=== PATIENT | male | born 1980 | race Hispanic/Latino ===

== ENCOUNTER 2023-08-10 10:31 | Outpatient (CLI) | payer BC | END 2023-08-10 10:32 | disposition home or self-care (01) | LOC: CSHLAB 10:31 | PROVIDERS: ATTEND Surgery | DX: Z01.818 Encounter for other preprocedural examination (principal); K42.9 Umbilical hernia without obstruction or gangrene | CPT/HCPCS: 93005; 93010 ==

== ENCOUNTER 2023-08-13 06:04 | Day surgery (SDC) | payer BC ==
[2023-08-10 11:36] VITALS: BMI 32.3
[2023-08-13] MEDS ORDERED: EPINEPHrine 1 MG/ML VIAL ONE (07:19)
[2023-08-13] MEDS ORDERED: Bupivacaine PF 0.5% 30 ML VIAL ONE (07:20)
[2023-08-13] MEDS ORDERED: Midazolam HCl 2 mg/2 ml Vial ONE (08:07)
[2023-08-13] MEDS ORDERED: Rocuronium Bromide 10 MG/ML (10ML VIAL) ONE (08:07)
[2023-08-13] MEDS ORDERED: Fentanyl 250 MCG/5 ML VIAL ONE (08:07)
[2023-08-13] MEDS ORDERED: PROPOFOL 20 ML ONE (08:07)
[2023-08-13] MEDS ORDERED: Lidocaine 2% PF 5 ML VIAL ONE (08:07)
[2023-08-13] MEDS ORDERED: CEFAZOLIN 2 GM VIAL ONE (08:13)
[2023-08-13] MEDS ORDERED: HYDROmorphone 0.5 MG/0.5 ML SYRINGE ONE (08:14)
[2023-08-13] MEDS ORDERED: SUGAMMADEX SODIUM 200 MG/2 ML VIAL ONE (08:14)
[2023-08-13] MEDS ORDERED: Dexamethasone 4 mg/ml Vial ONE (08:50)
[2023-08-13] MEDS ORDERED: Ondansetron PF 4 MG/2 ML Vial ONE (08:50)
[2023-08-13] MEDS ORDERED: fentaNYL 50 mcg/mL 1 mL Vial ONE ×2 (09:02→09:49)
[2023-08-13] MEDS ORDERED: HYDROcodone/Acetaminophen 5/325 mg Tablet PO PRN ×2 (09:35)
[2023-08-13] MEDS ORDERED: Acetaminophen 325 MG TAB PO PRN (09:35)
[2023-08-13] MEDS ORDERED: Sevoflurane 250 ML INH ANEST BOTTLE ONE (09:46)
[2023-08-13] MEDS ORDERED: Ketorolac Tromethamine 30 MG (1 mL) VIAL ONE (09:49)
[2023-08-13] MEDS ORDERED: HYDROcodone/Acetaminophen 5/325 mg Tablet ONE (10:29)
== END 2023-08-13 11:10 | disposition home or self-care (01) ==
LOC: CSHSDC 06:04
PROVIDERS: ATTEND Surgery
PROC: 0WUF4JZ Supplement Abdominal Wall with Synthetic Substitute, Percutaneous Endoscopic Approach (ICD-10-PCS; principal; 2023-08-13)
DX: K42.0 Umbilical hernia with obstruction, without gangrene (principal); E66.9 Obesity, unspecified; Z68.32 Body mass index [BMI] 32.0-32.9, adult; Z87.891 Personal history of nicotine dependence
CPT/HCPCS: A6258; J0171; J0665; J1100; J1170; J1885; J2001; J2250; J2405; J2704; J3010